=== PATIENT | female | born 1985 | race Caucasian/White ===

== ENCOUNTER 2022-05-05 08:32 | Emergency (ER) | payer BC ==
--- OUTSIDE RECORDS SUMMARY | 2022-05-05 08:35 | XMS REPORT | Continuity of Care Document ---
:1985 Author Organization [facility] t Address [address] [place] [address] Care Team Providers Name Role Phone TRACEY DRAKE Primary Care Physician Unavailable Nirav Attending Clinician Unavailable Claudia Dangelo Attending Clinician [phone] Catalino Carrasco MD Attending Clinician Fran Shrestha Attending Clinician FRAN WEBER Attending Clinician Unavailable STEVE_Skip Admitting Clinician Unavailable FRAN WEBER Admitting Clinician Unavailable Payers Payer Name Policy Type Policy Number Effective Date Expiration Date Aldo agu[place] [id number] 2016 00:00:00 [place] Problems Condition Condition Condition Status Onset Resolution Last Treating Co mments Source Name Details Category Date Date Treatment Clinician Date First First Disease Active Overview: Univer s degree degree 1-19 Formattin ity of perineal perineal 00:00: g of this Ronni as laceration laceration 00 note Me dical during during might be Branch delivery delivery different from the original. ICD10 Diagnosis Term Technician Test Systems Utility Female Female Disease Active Overview: Univer s genital genital Formattin ity o f symptoms symptoms g of this Ronni as note Medical might be Branch different from the original. ICD10 Diagnosis Term Technician Test Systems Utility Supervisio Supervisio Disease Active U nivers n of other n of other it y of normal normal [place] Medi anna Branch Other Other Disease Active Univers malaise malaise ity of and and [place] fatigue fatigue Medical Branch Need for Need for Disease Active Unive rs prophylact prophylact it y of ic ic [place] vaccinatio vaccinatio Me dical n and n and Branch inoculatio inoculatio n against n against influenza influenza Edema or Edema or Disease Active Unive rs excessive excessive ity of weight weight [place] gain, gain, Medical antepartum antepartum Br anch Contact Contact Disease Active Univers dermatitis dermatitis it y of and other and other [place] eczema due eczema due Me dical to other to other Branch specified specified agent agent Cervical Cervical Disease Active Unive rs high risk high risk ity of human human [place] papillomav papillomav Me dical irus (HPV) irus (HPV) Br anch DNA test DNA test positive positive Allergies, Adverse Reactions, Alerts Allergy Allergy Status Severity Reaction(s) Onset Inactive Treating Comm ents Source Name Type Date Date Clinician Tetrahyd Propensi Active Other - See 2015-05 U nivers rozoline ty to comments 0-04 ity of Hcl adverse 00:00: [place] reaction 00 [facility] s Branch TETRAHYD DRUG Active Other-Cmnt 2015-05 Univ ers ROZOLINE INGREDI 0-04 ity of HCL 00:00: [place] 00 Medical Branch Social History Social Habit Start Date Stop Date Quantity Comments Source Exposure to Not sure [facility] SARS-CoV-2 [facility] (event) Branch Alcohol intake 2021-02-28 2021-02-28 Critical access hospital 00:00:00 00:00:00 non-drinker of [facility] alcohol Branch (finding) Sex Ass[birth year] At [birth year] Universit y of 00:00:00 00:00:00 [facility] Smoking Status Start Date Stop Date Source Never smoker [facility] Medical Branch Medications Ordered Filled Start Stop Current Ordering Indication Dosage Frequency Signature Comments Components Source Medication Medication Date Date Medication? Clinician (SIG) Name Name acetaminoph 2020-05- No 1000mg 1,000 mg, Univers en 02-28 Oral, ity of (TYLENOL) 22:00: 20:59 ONCE, 1 [place] tablet 00 :00 dose, On Medical 1,000 mg Wed Branch 02/28/21 at 1700, Routine iopamidol 2020-05- No [id number] 100mL 100 mL, Univers (ISOVUE 02-28 Intravenou ity o f 370-500 mL) 19:25: 19:26 s, ONCE, 1 [place] injection 00 :00 dose, On Medica l 100 mL Wed Branch 02/28/21 at 1445, Routine oseltamivir Yes [id number] 75mg Take 1 Univers (TAMIFLU) 1-09 capsule by ity of 75 mg 00:00: mouth [place] capsule 00 daily. Medical Branch VALACYCLOVI 2017-05 Yes TAKE ONE Un maryam R 1 gram 2-10 (1) ity of tablet 00:00: TABLET(S) [place] 00 BY MOUTH Medical TWICE A Branch DAY. lisdexamfet Yes [id number] 20mg Take 1 Univers amine 4-04 capsule by ity of (VYVANSE) 00:00: mouth [place] 20 mg 00 every Medical capsule morning. Branch valACYclovi Yes [id number] 500mg Take 1 Univers r 500 mg 3-09 tablet by ity of tablet 00:00: mouth 2 [place] 00 (two) Medical times Branch daily. valacyclovi valacyclovi No valacyclov [facility] 500 mg r 500 mg ir 500 mg Me dical tablet tablet tablet Immunizations Ordered Filled Immunization Date Status Comments [facility] e Immunization Name Name Influenza Virus 2007-03-03 Completed Universit y of Vaccine 00:00:00 [facility] Vital Signs Vital Name Observation Time Observation Value Comments Source BP Diastolic 2021-09-10 00:00:00 76 mm[Hg] [facility] edical Height 2021-09-10 00:00:00 65 [facility]_i[facility] (Body Mass 2021-09-10 00:00:00 23.1 kg/m2 [facility] Index) BP Systolic 2021-09-10 00:00:00 108 mm[Hg] [facility] ed[facility] Body Weight 2021-09-10 00:00:00 139 [lb_av] [facility] edical Systolic blood 2021-02-28 21:10:00 97 mm[Hg] Univer sity of [facility] Diastolic blood 2021-02-28 21:10:00 65 mm[Hg] Unive rsity of [facility] Heart rate 2021-02-28 21:10:00 57 /min Universi ty of [place] [facility] Respiratory rate 2021-02-28 21:10:00 16 /min General acute hospital Oxygen saturation in 2021-02-28 21:10:00 100 /min [facility] Arterial blood by [facility] Pulse oximetry Branch Body temperature 2021-02-28 15:52:00 36.39 [facility] Body height 2021-02-28 15:52:00 165.1 cm [facility] Body weight 2021-02-28 15:52:00 58.968 kg [facility] BMI 2021-02-28 15:52:00 21.63 kg/m2 [facility] Procedures Procedure Date / Time Performed Performing Clinician [facility] e CT CHEST PULMONARY 2021-02-28 19:30:51 Fran Weber [facility] ANGIOGRAM Medical [place] XR CHEST 1 VW 2021-02-28 17:27:23 Gus [facility] LIPASE 2021-02-28 16:10:00 Danilo Catalino [facility] TROPONIN I 2021-02-28 16:10:00 Gus [facility] COMP. METABOLIC PANEL 2021-02-28 16:10:00 Catalino Carrasco [facility] ([id number]) [facility] CBC WITH DIFF 2021-02-28 16:10:00 Danilo Catalino [facility] URINALYSIS 2021-02-28 16:10:00 Catalino Carrasco [facility] POCT TEST 2021-02-28 16:08:00 Catalino Carrasco [facility] NOTICE OF PRIVACY 2021-02-28 15:48:28 Doctor Unassigned, No [facility] PRACTICES Name [facility] CONSENT/REFUSAL FOR 2021-02-28 15:47:52 Doctor Unassigned, No [facility] DIAGNOSIS AND Name [facility] TREATMENT Plan of Care Planned Activity Planned Date Details Comments Source Diagnostic Test Pending 2021-09-10 00:00:00 Ox-eye juan manuel IgE Ab [facility] [Units/volume] in Serum [code = 6196-0] Diagnostic Test Pending 2021-09-10 00:00:00 lh + FSH, serum [facility] [code = lh + FSH, serum] Diagnostic Test Pending 2021-09-10 00:00:00 testosterone, free [facility] + total, serum [code = testosterone, free + total, serum] Diagnostic Test Pending 2021-09-10 00:00:00 estradiol, serum [facility] [code = estradiol, serum] Diagnostic Test Pending 2021-09-10 00:00:00 progesterone, free, [facility] serum [code = progesterone, free, serum] Diagnostic Test Pending 2021-09-10 00:00:00 TSH + free T4, [facility] serum [code = TSH + free T4, serum] Future Appointment 2022-09-10 00:00:[address] [facility], [address]; [address], [place] [address] Encounters Start End Encounter Admission Attending Care Care Encounter Source Date/Time Date/Time Type Type Clinicians Facility Department ID 2021-09-10 2021-09-10 Outpatient [facility]_ PRIV PRIV [id number] [facility] 11:21:00 11:21:00 Chidi [id number] [facility] 2021-09-10 2021-09-10 Claudia [facility]IV [facility] 00:00:00 00:00:[address] [facility] dicde ter: [id number]_ [facility], Office* [address], [place] [address] , Ph. 2021-09-10 2021-09-10 Outpatient [facility] PRIV PRIV [id number] 00:00:00 00:00:00 er, Claudia [id number] 2021-09-06 2021-09-06 Outpatient GC_[facility]_ PRIV PRIV [id number] [facility] 10:45:00 10:45:00 Chidi [id number] [facility] 2021-08-13 2021-08-13 Outpatient GC_[facility]_ PRIV PRIV [id number] [facility] 10:37:00 10:37:00 Chidi [id number] [facility] 2021-02-28 2021-02-28 Emergency Catalino Carrasco [facility] [id number] Univers 10:56:00 16:14:00 Fran Weber [place] [id number] [facility] [id number] [facility] [id number] [place] [id number] Branch 2021-02-28 2021-02-28 Emergency X GUS [facility] ERT [id number] Univers 10:56:00 16:14:00 FRAN [facility] Results Test Description Test Time Test Comments Results Result Comments Source TROPONIN I 2021-02-28 20:05:20 Test Item Value Reference Range Interpretation Comme nts TROPONIN I (test code = <0.012 See_Comment [Au tomated message] The 5171568491) system which ge nerated this result tra nsmitted reference range : <=0.034 ng/mL. The refe rence range was not u sed to interpret this result as normal/abnormal . SALMA (test code = SALMA) Reference (Normal) Range (defined by the 99th percentile reference limit): <= 0.034 ng/mL Note: Cardiac troponin begins to rise 3-4 hours after the onset of ischemia. Repeat in 4-6 hours if the sample was drawn within 3-4 hours of the onset of the symptom and found normal. Diagnosis of myocardial injury is made with acute changes in cTn concentrations with at least one serial sample above the 99th percentile upper reference limit (URL), taken together with the patient's clinical presentation. Biotin has been reported to cause a negative bias, interpret results relative to patient's use of biotin. Lab Interpretation Normal (test code = 98198-5) [facility] with [id number] 17:31:18 Test Item Value Reference Range Interpretation Comments WBC (test code = See_Comment [Automated 2736-2) message] The sy stem which generated this result transmitted reference range : 4.30 - 11.10 10*3/?L. The reference range was not used to interpret this result as normal/abnormal . RBC (test code = See_Comment [Automated 773-8) message] The sy stem which generated this result transmitted reference range : 3.93 - 5.25 10*6/?L. The reference range was not used to interpret this result as normal/abnormal . HGB (test code = 13.2 g/dL 11.6-15.0 718-7) HCT (test code = 40.0 % 35.7-45.2 4544-3) MCV (test code = 95.9 fL 80.6-95.5 H 787-2) MCH (test code = 31.7 pg 25.9-32.8 785-6) MCHC (test code = 33.0 g/dL 31.6-35.1 786-4) RDW-SD (test code = 42.3 fL 39.0-49.9 68871-2) RDW-CV (test code = 12.0 % 12.0-15.5 788-0) PLT (test code = See_Comment [Automated 777-3) message] The sy stem which generated this result transmitted reference range : 166 - 358 10*3/ ?L. The reference r kp was not used to interpret this result as normal/abnormal . MPV (test code = 9.9 fL 9.5-12.9 54432-8) NRBC/100 WBC (test See_Comment [Automat ed code = 2107069099) message] The system which generated this result transmitted reference range : 0.0 - 10.0 /100 WBCs. The refer ence range was not u sed to interpret th is result as normal/abnormal . NRBC x10^3 (test code <0.01 See_Comment [Auto mated = 9219928109) message] The s ystem which generated this result transmitted reference range : 10*3/?L. The reference range was not used to interpret this result as normal/abnormal . GRAN MAT (NEUT) % 41.7 % (test code = 770-8) IMM GRAN % (test code 0.00 % = 2753069931) LYMPH % (test code = 46.5 % 736-9) MONO % (test code = 7.3 % 5905-5) EOS % (test code = 3.9 % 713-8) BASO % (test code = 0.6 % 706-2) GRAN MAT x10^3(ANC) 1.94 10*3/uL 1.88-7.09 (test code = 7956627404) IMM GRAN x10^3 (test <0.03 0.00-0.06 code = 0880737875) LYMPH x10^3 (test code 2.16 10*3/uL 1.32-3.29 = 731-0) MONO x10^3 (test code 0.34 10*3/uL 0.33-0.92 = 742-7) EOS x10^3 (test code = 0.18 10*3/uL 0.03-0.39 711-2) BASO x10^3 (test code 0.03 10*3/uL 0.01-0.07 = 704-7) Lab Interpretation Abnormal (test code = 86140-1) [facility] [id number] 16:41:01 Test Item Value Reference Range Interpretation Comments NA (test code = 136 mmol/L 135-145 2397950225) K (test code = 4.2 mmol/L 3.5-5.0 5972183306) CL (test code = 105 mmol/L 98-108 1080905753) CO2 TOTAL (test code 26 mmol/L 23-31 = 4547010638) AGAP (test code = 2-16 8427030670) BUN (test code = 12 mg/dL 7-23 7299385301) GLUCOSE (test code = 87 mg/dL 70-110 5981239031) CREATININE (test code 0.65 mg/dL 0.50-1.04 = 1112537065) TOTAL BILI (test code 0.8 mg/dL 0.1-1.1 = 2889447827) CALCIUM (test code = 9.2 mg/dL 8.6-10.6 6095320102) T PROTEIN (test code 7.2 g/dL 6.3-8.2 = 4202319575) ALBUMIN (test code = 4.4 g/dL 3.5-5.0 8796500944) ALK PHOS (test code = 35 U/L 34-122 9483785514) ALTv (test code = 19 U/L 5-35 1742-6) AST(SGOT) (test code 24 U/L 13-40 = 7673954708) eGFR (test code = mL/min/1.73m2 3062679204) SALMA (test code = SALMA) Association of Glomerular Filtration Rate (GFR) and Staging of Kidney Disease* + + +- +| GFR (mL/min/1.73 m2) ?| With Kidney Damage ?| ?Without Kidney Damage+ ------+ ----+ ------+| ?>90 ?| ?Stage one ?| ? Normal ?+ -+ + -+| ?60-89 ?| ?Stage two ?| ? Decreased GFR ? + + +- +| ?30-59 ?| ?Stage three ?| ? Stage three ? + + +- +| ?15-29 ?| ?Stage four ? | ? Stage four ?+ -+ + -+| ?<15 (or dialysis) ? ?| ?Stage five ? | ? Stage five ?+ -+ + -+ *Each stage assumes the associated GFR level has been in effect for at least three months. ?Stages 1 to 5, with or without kidney disease, indicate chronic kidney disease. Notes: Determination of stages one and two (with eGFR >59mL/min/1.73 m2) requires estimation of kidney damage for at least three months as defined by structural or functional abnormalities of the kidney, manifested by either:Pathological abnormalities or Markers of kidney damage (including abnormalities in the composition of the blood or urine or abnormalities in imaging tests). [facility], [id number] 16:40:40 Test Item Value Reference Range Interpretation Comments LIPASE (test code = 4806738338) 168 U/L 0-220 Lab Interpretation (test code = Normal 14109-7) [facility] [id number] 16:08:00 Test Item Value Reference Range Interpretation Comments POCT PREG (test code = 1605) negative On board controls acceptable with present C Line (test code = 3574) POCT PREG LOT # (test code = 3575) [id number] POCT PREG TEST DATE (test 05-04-2022 code = 3576) Lab Interpretation (test code = Normal 63346-0) [facility]"
[2022-05-05] MEDS ORDERED: LIDOCAINE 1% 20 ML MDV ONE (09:23)
[2022-05-05] MEDS ORDERED: ACETAMINOPHEN 325 MG TABLET ONE (09:27)
--- NOTE | 2022-05-05 10:32 | EDPHYS ---
Physician Documentation [facility] Name: Macie Pickering Age: 36 yrs Sex: Female : 1985 Arrival Date: 05/05/2022 Time: 08:43 Bed 16 Private MD: ED Physician Sid Corcoran HPI: 05/05 09:18 This 36 yrs old Female presents to ER via Ambulatory with complaints of Finger Injury. en 09:18 36 yo RHF F presents to ED with right ring finger laceration TABLEMAN on wine glass. Tried en to catch it from falling off counter when it broke. DROM at DIP, bleeding controlled. Unk last Td, but declining. No numbness. 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 Last tetanus immunization: unknown. - Social history:: Smoking status: Patient denies any tobacco usage or history of. ROS: 09:18 Constitutional: Negative for fever, chills, and weight loss. en 09:18 MS/extremity: Positive for Lac to ring finger with DROM at DIP. . 09:18 All other systems are negative. Exam: 09:18 Constitutional: This is a well developed, well nourished patient who is awake, alert, en and in no acute distress. 09:18 Musculoskeletal/extremity: right ring finger with 2.5cm lac over volar surface of middle phalanx with DROM in Flexion at DIP. Cap refill < 2sec. Suspect tendon laceration. Will examine under local anesthesia. Vital Signs: 09:01 BP 105 / 76; Pulse 60; Resp 15; Temp 98.4; Pulse Ox 100% ; Weight 63.5 kg; Height 5 ft. vg1 5 in. (165.10 cm); Pain 2/10; 10:00 BP 97 / 67; Pulse 70; Resp 14; Pulse Ox 100% ; vg1 09:01 Body Mass Index 23.30 (63.50 kg, 165.10 cm) vg1 Laceration: 10:30 Wound Repair of 2.5cm ( 1.0in ) subcutaneous laceration to right hand. Distal en neuro/vascular/tendon intact. Anesthesia: Wound infiltrated with 7 mls of 2% lidocaine. Skin closed with 7 4-0 Ethilon using simple sutures and sterile technique. Dressed with bandaid. Patient tolerated well. MDM: 08:46 Patient medically screened. en 09:18 Data reviewed: vital signs, nurses notes, and as a result, I will primarily close en laceration. XR considered but not warranted given mechanism. Will give po tylenol for pain. . 10:30 ED course: Pt tolerated procedure well. Wound care discussed. en 10:33 ED course: XR considered but wound base well visualized and no the glass was not in en small pieces. No concern for FB of fracture. Tendon intact. FROM at DIP once anesthetized. NVI. Administered Medications: 09:25 Drug: Lidocaine (1 %) 10 ml Volume: 20 ml; Route: Infiltration; kc6 10:58 Follow up: Response: No adverse reaction vg1 10:58 Follow up: administered by provider at [facility] 09:25 Drug: Tylenol 650 mg Route: PO; kc6 10:58 Follow up: Response: No adverse reaction; Marked relief of symptoms vg1 Disposition: 13:51 Co-signature as Attending Physician, Sid Corcoran MD. rn Disposition Summary: 05/05/22 10:32 Discharge Ordered Location: Home en Problem: new en Symptoms: have improved en Condition: Stable en Diagnosis - Laceration without foreign body of finger without damage to nail en Followup: en - With: Private Physician - When: 7 - 10 days - Reason: Staple/Suture removal Discharge Instructions: - Discharge Summary Sheet en - Laceration Care, Adult, Soyy-xw-Cnan en Forms: - Medication Reconciliation Form en - Thank You Letter en - Antibiotic Education en - Prescription Opioid Use en Signatures: Sid Corcoran MD MD rn Garcia, Victoria RN RN ada1 Geovanna Nicholson PA PA en Constance Fierro RN RN kc6 Corrections: (The following items were deleted from the chart) 10:34 10:30 ED course: Pt tolerated procedure well. Wound care discussed. en en
--- NOTE | 2022-05-05 10:32 | ER ---
Nurse's Notes [facility] Name: Macie Pickering Age: 36 yrs Sex: Female : 1985 Arrival Date: 05/05/2022 Time: 08:43 Bed 16 Private MD: Diagnosis: Laceration without foreign body of finger without damage to nail Presentation: 05/05 09:01 Chief complaint: Patient states: about an hour ago pt was reaching out for a glass cup vg1 that was falling and cut Right Ring finger; bleeding controlled; rates pain 2/10. Coronavirus screen: Vaccine status: Patient reports being unvaccinated. Client denies travel out of the [place] in the last 14 days. Ebola Screen: Patient negative for fever greater than or equal to 101.5 degrees Fahrenheit, and additional compatible Ebola Virus Disease symptoms. Initial Sepsis Screen: Does the patient meet any 2 criteria? No. Patient's initial sepsis screen is negative. Does the patient have a suspected source of infection? No. Patient's initial sepsis screen is negative. Risk Assessment: Do you want to hurt yourself or someone else? Patient reports no desire to harm self or others. Onset of symptoms was May 05, 2022. 09:01 Method Of Arrival: Ambulatory vg1 09:01 Acuity: EDITH 4 vg1 Triage Assessment: 09:03 General: Appears in no apparent distress. comfortable, Behavior is calm, cooperative. vg1 Pain: Complains of pain in palmar aspect of middle phalanx of right ring finger and palmar aspect of proximal phalanx of right ring finger Pain currently is 2 out of 10 on a pain scale. Musculoskeletal: Circulation, motion, and sensation intact. Injury Description: Laceration sustained to palmar aspect of middle phalanx of right ring finger and palmar aspect of proximal phalanx of right ring finger. 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 Last tetanus immunization: unknown. - Social history:: Smoking status: Patient denies any tobacco usage or history of. Screenin:14 [facility] ED Fall Risk Assessment (Adult) History of falling in the last 3 months, vg1 including since admission No falls in past 3 months (0 pts) Confusion or Disorientation No (0 pts) Intoxicated or Sedated No (0 pts) Impaired Gait No (0 pts) Mobility Assist Device Used No (0 pt) Altered Elimination No (0 pt) Score/Fall Risk Level 0 - 2 = Low Risk Oriented to surroundings, Maintained a safe environment, Educated pt \T\ family on fall prevention, incl call for assistance when getting out of bed, Assessed \T\ reinforced patient's understanding of fall precautions. Abuse screen: Denies threats or abuse. Nutritional screening: No deficits noted. Tuberculosis screening: No symptoms or risk factors identified. Assessment: 09:01 Reassessment: SEE TRIAGE. vg1 10:17 Reassessment: Patient appears in no apparent distress at this time. No changes from vg1 previously documented assessment. Patient and/or family updated on plan of care and expected duration. Pain level reassessed. Patient is alert, oriented x 3, equal unlabored respirations, skin warm/dry/pink. 10:18 Reassessment: Provider at bedside. vg1 Vital Signs: 09:01 BP 105 / 76; Pulse 60; Resp 15; Temp 98.4; Pulse Ox 100% ; Weight 63.5 kg; Height 5 ft. vg1 5 in. (165.10 cm); Pain 2/10; 10:00 BP 97 / 67; Pulse 70; Resp 14; Pulse Ox 100% ; vg1 09:01 Body Mass Index 23.30 (63.50 kg, 165.10 cm) vg1 ED Course: 08:43 Patient arrived in ED. mr 08:46 Geovanna Nicholson PA is PHCP. en 08:46 Sid Corcoran MD is Attending Physician. en 09:03 Triage completed. vg1 09:03 Arm band placed on. vg1 09:13 Kristin Parr, RN is Primary Nurse. vg1 09:14 Patient has correct armband on for positive identification. Bed in low position. Call vg1 light in reach. Adult w/ patient. 10:57 No provider procedures requiring assistance completed. Patient did not have IV access vg1 during this emergency room visit. Administered Medications: 09:25 Drug: Lidocaine (1 %) 10 ml Volume: 20 ml; Route: Infiltration; kc6 10:58 Follow up: Response: No adverse reaction vg1 10:58 Follow up: administered by provider at 1018 vg1 09:25 Drug: Tylenol 650 mg Route: PO; kc6 10:58 Follow up: Response: No adverse reaction; Marked relief of symptoms vg1 Medication: 10:57 VIS not applicable for this client. vg1 Intake: Outcome: 10:32 Discharge ordered by . estrellita 10:57 Discharged to home ambulatory, with family. vg1 10:57 Condition: good 10:57 Discharge instructions given to patient, Instructed on discharge instructions, follow up and referral plans. wound care, Demonstrated understanding of instructions, follow-up care, wound care. 10:57 Patient left the ED. vg1 Signatures: Elsa Mina Victoria, RN RN vg1 Geovanna Nicholson PA PA en Campbell, Kaitlyn RN RN kc6
[2022-05-05 11:02] VITALS: TEMP 98.4; O2SAT 100
[2022-05-05 11:03] VITALS: BP 97/67
== END 2022-05-05 10:57 | disposition home or self-care (01) ==
LOC: ER 08:32
PROC: 0HQFXZZ Repair Right Hand Skin, External Approach (ICD-10-PCS; principal; 2022-05-05)
DX: S61.214A Laceration without foreign body of right ring finger without damage to nail, initial encounter (principal); Z88.1 Allergy status to other antibiotic agents; Z88.6 Allergy status to analgesic agent
CPT/HCPCS: 99283